=== PATIENT | male | born 1930 | race Caucasian/White ===

== ENCOUNTER 2018-04-12 09:17 | Emergency (ER) | payer MEDICARE, OTHER ==
[~2018-04-12] VITALS: Ht 175.3 cm; Wt 97.7 kg
[~2018-04-12 09:17] MED LIST: FLO0.4C PO; LEVO25TA50 PO
[2018-04-12] MEDS ORDERED: AMOX500C2 PO (10:19)
[2018-04-12 10:41] VITALS: BP 150/86
== END 2018-04-12 10:44 | disposition home or self-care (01) ==
LOC: ER 09:18
DX: J40 Bronchitis, not specified as acute or chronic (principal); E03.9 Hypothyroidism, unspecified; Z88.6 Allergy status to analgesic agent; Z88.5 Allergy status to narcotic agent; Z88.0 Allergy status to penicillin; Z79.899 Other long term (current) drug therapy
CPT/HCPCS: 71046; 93005; 99284

== ENCOUNTER 2018-05-22 07:56 | Emergency (ER) | payer MEDICARE, OTHER ==
[~2018-05-22] VITALS: Ht 175.3 cm; Wt 101.5 kg
[2018-05-22] MEDS ORDERED: normal saline 1000ML IV soln IVB ONE (08:40)
[2018-05-22] MEDS ORDERED: meclizine 12.5mg tablet PO ONE (08:55)
[2018-05-22 09:09] LABS: BASOPHILS # (AUTO) 0.1 X10'3 (0-0.2); BASOPHILS % (AUTO) 0.6 % (0-1); EOSINOPHILS # (AUTO) 0.2 X10'3 (0-0.9); EOSINOPHILS % (AUTO) 1.8 % (0-6); HEMATOCRIT 43.1 % (42.0-52.0); HEMOGLOBIN 14.2 g/dl (14.0-17.9); LYMPHOCYTES % (AUTO) 22.5 % (21-51); MEAN CORPUSCULAR HEMOGLOBIN 30.4 PG (27.0-31.0); MEAN CORPUSCULAR HGB CONC 32.8 % (33.0-36.5); MEAN CORPUSCULAR VOLUME 92.6 FL (78-98); MEAN PLATELET VOLUME 7.6 FL (7.4-10.4); MONOCYTES # (AUTO) 0.7 X10'3 (0-0.9); MONOCYTES % (AUTO) 7.5 % (2-12); NEUTROPHILS # (AUTO) 5.9 X10'3 (1.8-7.7); NEUTROPHILS % (AUTO) 67.6 % (42-75); PLATELET COUNT 226 X10'3 (140-440); RED BLOOD COUNT 4.65 X10'6 (4.70-6.10); RED CELL DISTRIBUTION WIDTH 15.5 % (11.5-14.5); WHITE BLOOD COUNT 8.8 X10'3 (4.5-11.0)
[2018-05-22 09:31] LABS: ALANINE AMINOTRANSFERASE 32 U/L (12-78); ALBUMIN 3.2 G/DL (3.4-5.0); ALKALINE PHOSPHATASE 60 IU/L (46-116); ANION GAP 7 (8-16); ASPARTATE AMINO TRANSFERASE 17 U/L (10-37); BILIRUBIN,TOTAL 0.5 MG/DL (0.1-1.0); BLOOD UREA NITROGEN 26 MG/DL (7-18); BUN/CREATININE RATIO 16.5 (5.4-32.0); CALCIUM 8.3 MG/DL (8.5-10.1); CHLORIDE 104 MMOL/L (99-107); CREATININE 1.58 MG/DL (0.60-1.10); GLUCOSE 112 MG/DL (70-104); POTASSIUM 3.7 MMOL/L (3.5-5.1); SODIUM 140 MMOL/L (135-145); TOTAL CARBON DIOXIDE 28.7 MMOL/L (24-32); TOTAL PROTEIN 6.3 G/DL (6.4-8.2); eGFR 42 ML/MIN
[2018-05-22 09:32] LABS: PHOSPHORUS 2.4 MG/DL (2.3-4.5)
[2018-05-22 10:17] LABS: CLARITY,URINE CLEAR (Clear); COLOR,URINE YELLOW (Yellow); GLUCOSE, URINE NEGATIVE (Neg); KETONES,URINE NEGATIVE (Neg); LEUKOCYTE ESTERASE ,URINE NEGATIVE (Neg); NITRITES, URINE NEGATIVE (Neg); OCCULT BLOOD,URINE NEGATIVE (Neg); PROTEIN,URINE NEGATIVE (Neg); UA COLLECTION TYPE URINAL; UROBILINOGEN,URINE 0.2 E.U/dL (0.2-1.0)
[2018-05-22] MEDS ORDERED: CARB15DR91 EACH EAR (10:55)
[2018-05-22 11:07] VITALS: BP 161/83
== END 2018-05-22 11:05 | disposition home or self-care (01) ==
LOC: ER 07:56
DX: R42 Dizziness and giddiness (principal); E03.9 Hypothyroidism, unspecified; Z98.890 Other specified postprocedural states; Z88.5 Allergy status to narcotic agent; Z88.0 Allergy status to penicillin; Z88.6 Allergy status to analgesic agent; Z79.899 Other long term (current) drug therapy
CPT/HCPCS: 36415; 71045; 80053; 81003; 83735; 84100; 84443; 84484; 85025; 93005; 96360; 99285; J7030; J8597

== ENCOUNTER 2018-06-03 07:02 | Emergency (ER) | payer MEDICARE, OTHER ==
[~2018-06-03] VITALS: Ht 175.3 cm; Wt 101.0 kg
[~2018-06-03 07:02] MED LIST changes: +CARB15DR91 EACH EAR
[2018-06-03 07:11] VITALS: BP 151/82
[2018-06-03] MEDS ORDERED: BENZ-16 PO (08:03)
== END 2018-06-03 08:30 | disposition home or self-care (01) ==
LOC: ER 07:03
DX: J06.9 Acute upper respiratory infection, unspecified (principal); E03.9 Hypothyroidism, unspecified; Z98.890 Other specified postprocedural states; Z88.5 Allergy status to narcotic agent; Z88.0 Allergy status to penicillin; Z88.6 Allergy status to analgesic agent; Z79.899 Other long term (current) drug therapy
CPT/HCPCS: 99283

== ENCOUNTER 2019-05-21 16:21 | Observation (INO) | payer MEDICARE, OTHER ==
[2019-05-21] VITALS (9 sets, daily range): BP systolic 78–128; BP diastolic 33–89
[~2019-05-21] VITALS: Ht 179.1 cm; Wt 98.0 kg
[2019-05-21] MEDS ORDERED: morphine 4 MG/ML inj SYRINge IV ONE (17:10)
[2019-05-21 17:22] LABS: BASOPHILS # (AUTO) 0.2 X10'3 (0-0.2); BASOPHILS % (AUTO) 0.8 % (0-1); EOSINOPHILS # (AUTO) 0.4 X10'3 (0-0.9); EOSINOPHILS % (AUTO) 1.9 % (0-6); HEMATOCRIT 44.2 % (42.0-52.0); LYMPHOCYTES # (AUTO) 1.7 X10'3 (1.1-4.8); LYMPHOCYTES % (AUTO) 8.7 % (21-51); MEAN CORPUSCULAR HEMOGLOBIN 30.3 PG (27.0-31.0); MEAN CORPUSCULAR HGB CONC 34.1 g/dL (33.0-36.5); MEAN CORPUSCULAR VOLUME 89.1 FL (78-98); MONOCYTES # (AUTO) 1.1 X10'3 (0-0.9); MONOCYTES % (AUTO) 5.9 % (2-12); NEUTROPHILS # (AUTO) 15.7 X10'3 (1.8-7.7); NEUTROPHILS % (AUTO) 82.7 % (42-75); PLATELET COUNT 310 X10'3 (140-440); RED BLOOD COUNT 4.96 X10'6 (4.70-6.10); RED CELL DISTRIBUTION WIDTH 13.1 % (11.5-14.5)
[2019-05-21 17:33] LABS: ALANINE AMINOTRANSFERASE 20 U/L (12-78); ALBUMIN 3.7 G/DL (3.4-5.0); ALBUMIN/GLOBULIN RATIO 0.8 (1.1-1.5); ALKALINE PHOSPHATASE 85 IU/L (46-116); AMYLASE 57 U/L (25-115); ANION GAP 8 (8-16); ASPARTATE AMINO TRANSFERASE 26 U/L (10-37); BILIRUBIN,TOTAL 0.6 MG/DL (0.1-1.0); BLOOD UREA NITROGEN 19 MG/DL (7-18); CALCIUM 9.4 MG/DL (8.5-10.1); CHLORIDE 103 MMOL/L (99-107); CREATININE 1.46 MG/DL (0.60-1.10); GLUCOSE 124 MG/DL (70-104); LIPASE 99 U/L (73-393); POTASSIUM 4.2 MMOL/L (3.5-5.1); SODIUM 139 MMOL/L (135-145); TOTAL PROTEIN 8.1 G/DL (6.4-8.2); eGFR 45 ML/MIN
[2019-05-21] MEDS ORDERED: ondansetron/PF 4mg/2ml inj IV ONE (17:35)
[2019-05-21 19:03] LABS: CLARITY,URINE CLEAR (Clear); COLOR,URINE YELLOW (Yellow); GLUCOSE, URINE NEGATIVE (Neg); KETONES,URINE NEGATIVE (Neg); LEUKOCYTE ESTERASE ,URINE NEGATIVE (Neg); NITRITES, URINE NEGATIVE (Neg); OCCULT BLOOD,URINE NEGATIVE (Neg); PROTEIN,URINE NEGATIVE (Neg); UROBILINOGEN,URINE 0.2 E.U/dL (0.2-1.0)
[2019-05-21 19:05] LABS: UA COLLECTION TYPE VOIDED
[2019-05-21] MEDS ORDERED: NORMAL SALINE IV ONE (19:30)
[2019-05-21] MEDS ORDERED: CEFOXITIN IV ONE (19:30)
[2019-05-21] MEDS ORDERED: D5W 2 GM IV ONE (19:30)
[2019-05-21] MEDS ORDERED: cefoxitin sod inj 2,000 MG in normal saline 100ml IV soln 100 ML IV SCH (19:40)
--- NOTE | 2019-05-21 20:05 | NUR ---
REECEIVED A CALL FROM DIESEL BUS MECHANICCOLLEEN Castro TO MAKE SURE PT HAS ALL HIS CLOTHING OFF AND A PATENT IV LiNE. PT IN GOWN , REMOVED PANTS , BELT , SHOES, SOCKS, AND ADDED THE FLANNEL AND JACKET TO PT BELONGING BAG. [facility] AND CAR KEYS , AND HIS FALSE TOOTH . PT HAS GLASSESS ON AND ASKED TO KEEP THEM IN PLACE TILL HE IS IN THE OR .
--- NOTE | 2019-05-21 20:06 | NUR ---
COLLEEN kamara in or stated to send the abxcefoitin ordered with the pt to the or and it will be adminstered there. med at bed awaiting canvas workerturner machine report given to QA ENGINEERCOLLEEN Kamara
[2019-05-21] MEDS ORDERED: BUPIVAcaine/PF 2.5 mg/ml (0.25%) 30ml vial ONE (20:07)
[2019-05-21] MEDS ORDERED: desflurane 240ml liquid inh. IH ONE (20:37)
[2019-05-21] MEDS ORDERED: ringers solution, lacted 1,000 ML IV SCH ×2 (20:38→22:05)
[2019-05-21] MEDS ORDERED: morphine 4 MG/ML inj SYRINge IV PRN ×4 (20:40→22:05)
[2019-05-21] MEDS ORDERED: ondansetron/PF 4mg/2ml inj IV PRN ×4 (20:40→22:05)
[2019-05-21] MEDS ORDERED: meperidine/PF 25mg/ml syringe IV PRN ×5 (20:40→22:05)
[2019-05-21] MEDS ORDERED: proCHLORperazine 10 MG/2 ml inj IV PRN ×2 (20:40→22:05)
[2019-05-21] MEDS ORDERED: midazolam 2 mg/2 ml injection ONE (20:41)
[2019-05-21] MEDS ORDERED: fentaNYL/PF 50MCG/1 ML 2ML syringe ONE (20:41)
[2019-05-21] MEDS ORDERED: LIDOcaine 2% (20mg/ml) 5ml vial ONE (20:42)
[2019-05-21] MEDS ORDERED: propofol inj 20 ML IV ONE (20:42)
[2019-05-21] MEDS ORDERED: rocuronium 10mg/ml inj IV ONE (20:42)
[2019-05-21] MEDS ORDERED: mag hydrox/Alum hydrox/simeth 30ml oral suspension PO PRN (21:10)
[2019-05-21] MEDS ORDERED: magnesium hydroxide 30ml (MOM) UD suspension PO PRN (21:10)
[2019-05-21] MEDS ORDERED: acetaminophen 325mg tablet PO PRN ×2 (21:10)
[2019-05-21] MEDS ORDERED: acetaminophen 1,000mg/100ml IV 100 ML IV ONE (21:20)
[2019-05-21] MEDS ORDERED: glycopyrrolate 0.2mg/ml inj ONE (21:27)
[2019-05-21] MEDS ORDERED: neostigmine methylsulfate 1 MG/ML 10ml vial ONE (21:27)
--- NOTE | 2019-05-21 21:38 | NUR ---
Received from OR via [facility] , accompanied by Anesthesiologist EDY and report given by Anesthesiolgist. PATIENT WITH 20G PIV IN RIGHT UE RUNNING LR AT 100. PATIENT WITH 10L MASK ON WITH 100%, MENDOZA CATHETER PRESENT AND SMALL AMOUNT OF BLOOD AT THE MEATUS. PATIENT WITH SCDS DONNED. 2 HEARING AIDES PRESENT IN EARS. 10L MASK ON WITH 100% SATURATIONS. 3 ABDOMINAL LAP SITES THAT ARE CDI. MEDICATED FOR PAIN UPON ARRIVAL. Addendum: 05/21/19 at 2152 by Hussein Mclean RN, RN Amended: Links added.
[2019-05-21] MEDS ORDERED: HYDROmorphone 1 mg/ml syringe IV PRN (22:00)
--- NOTE | 2019-05-21 22:18 | NUR ---
ALL CRITERIA FOR TRANSFER TO THE FLOOR HAS BEEN ACHIEVED. VSS. BED LOW, CALL LIGHT AND VS. SET IN PLACE. RN PRESENT TO ACCEPT CARE. PATIENT RESTING COMFORTABLY IN BED. BELONGINGS SENT WITH PATIENT. DRESSINGS CDI. COLLEEN CLEMONS PRESENT TO ACCEPT CARE OF PATIENT. Addendum: 05/21/19 at 2227 by Hussein Sun - COLLEEN MACIAS Amended: Links added.
--- NOTE | 2019-05-21 22:25 | NUR ---
Received report from COLLEEN Savage. Awaiting patient arrival to the unit.
--- NOTE | 2019-05-21 22:28 | NUR ---
Patient arrived to the floor on hospital bed accompanied by COLLEEN Savage. Patient is slightly sleepy from anesthesia. 16 even and unlabored respirations on 2L NC. In no apparent distress. Call light and items of frequent use within reach. Will continue to monitor.
[2019-05-21] MEDS ORDERED: cefoxitin sod inj 2,000 MG in normal saline 100ml IV soln 100 ML IV ONE (23:45)
[2019-05-22] VITALS: BP 97/47
[2019-05-22 01:15] VITALS: BP 100/45
[2019-05-22 02:15] VITALS: BP 94/54
[2019-05-22 03:15] VITALS: BP 98/53
[2019-05-22 05:46] LABS: BASOPHILS % (AUTO) 0 % (0-1); EOSINOPHILS % (AUTO) 0 % (0-6); HEMATOCRIT 40.5 % (42.0-52.0); HEMOGLOBIN 13.7 g/dl (14.0-17.9); LYMPHOCYTES # (AUTO) 0.6 X10'3 (1.1-4.8); LYMPHOCYTES % (AUTO) 2.7 % (21-51); MEAN CORPUSCULAR HEMOGLOBIN 30.1 PG (27.0-31.0); MEAN CORPUSCULAR HGB CONC 33.9 g/dL (33.0-36.5); MEAN CORPUSCULAR VOLUME 88.8 FL (78-98); MEAN PLATELET VOLUME 8.3 FL (7.4-10.4); MONOCYTES # (AUTO) 0.5 X10'3 (0-0.9); MONOCYTES % (AUTO) 2.5 % (2-12); NEUTROPHILS # (AUTO) 20.8 X10'3 (1.8-7.7); NEUTROPHILS % (AUTO) 94.8 % (42-75); PLATELET COUNT 259 X10'3 (140-440); RED BLOOD COUNT 4.56 X10'6 (4.70-6.10); RED CELL DISTRIBUTION WIDTH 12.9 % (11.5-14.5); WHITE BLOOD COUNT 21.9 X10'3 (4.5-11.0)
[2019-05-22 05:49] LABS: ALBUMIN 2.9 G/DL (3.4-5.0); ANION GAP 9 (8-16); BLOOD UREA NITROGEN 21 MG/DL (7-18); CALCIUM 8.6 MG/DL (8.5-10.1); CHLORIDE 104 MMOL/L (99-107); CREATININE 1.62 MG/DL (0.60-1.10); GLUCOSE 157 MG/DL (70-104); POTASSIUM 4.5 MMOL/L (3.5-5.1); SODIUM 138 MMOL/L (135-145); TOTAL CARBON DIOXIDE 24.9 MMOL/L (24-32); eGFR 40 ML/MIN
--- NOTE | 2019-05-22 06:33 | NUR ---
Problems reprioritized. Patient report given, questions answered & plan of care reviewed with COLLEEN Maxwell.
--- NOTE | 2019-05-22 06:41 | NUR ---
Patient in room [facility]. I have received report from Clotilde MACIAS and had the opportunity to ask questions and assume patient care.
[2019-05-22 07:00] VITALS: BP 108/52
[2019-05-22] MEDS ORDERED: tamsulosin 0.4mg capsule PO SCH (08:00)
--- NOTE | 2019-05-22 09:09 | NUR ---
Dr. Correa made rounds talked to patient and at bedside. Received order to d/c partida catheter and if able to urinate may go home today. Dr. Wang also aware about Dr. Correa discharging this patient today Addendum: 05/22/19 at 1025 by Alissa Higginbotham RN Dr. Correa and Dr. Wang were both notified about elevated WBC today (21.9)
--- NOTE | 2019-05-22 09:15 | NUR ---
D/c'd partida catheter as ordered, tolerated well. Encouraged patient to try to void. Urinal provided, instructed patient to use the urinal when he pee. Encouraged patient to ambulate with the [employer] soon. LYNETTE Nicole instructed to ambulate patient in the hallway
[2019-05-22] MEDS ORDERED: HYDR-4383 PO (10:25)
[2019-05-22 11:00] VITALS: BP 98/52
--- NOTE | 2019-05-22 14:17 | NUR ---
Patient urinated at earlier time, 50 ml of yellow urine. Bladder scan shows 130ml. Encouraged patient to drink more and ambulate. Patient ambulated in the hallway [address] Wang came by and I let him know about this, he instructed me to let patient go and to give instruction to patient to go to ER for partida catheter insertion if patient unable to urinate and have a lot of discomfort from not urinating. Charge nurse Mara aware about this Addendum: 05/22/19 at 1451 by Alissa Higginbotham RN Patient reported to me that he already passed gas
--- NOTE | 2019-05-22 14:39 | NUR ---
Discharge instruction given to patient and the at bedside. Patient was instructed to go to ER for partida catheter insertion if patient unable to urinate for several hours and have a lot of discomfort from not urinating. Patient verbalized understanding of all instructions made. Peripheral IV catheter removed, tip intact. Original written prescription for [place] given to patient. Instructed patient to ensure he has all his belongings with him before leaving.
--- NOTE | 2019-05-22 14:58 | NUR ---
Patient urinated 120 ml of blood-tinged urine. Instructed patient not to worry about unless it's persistent and urine color become dark red or groves red color. Instructed patient that if hematuria persists and dark or groves red then he can go to ER to be evaluated.
== END 2019-05-22 14:55 | disposition home or self-care (01) ==
LOC: ER 16:21 → SUR 3N 22:08
PROVIDERS: ADMIT Hospitalist; ATTEND Internal Medicine
DX: K35.80 Unspecified acute appendicitis (principal); E03.9 Hypothyroidism, unspecified; N18.3 Chronic kidney disease, stage 3 (moderate); N40.1 Benign prostatic hyperplasia with lower urinary tract symptoms; R33.8 Other retention of urine; Z79.899 Other long term (current) drug therapy; Z88.0 Allergy status to penicillin; Z88.5 Allergy status to narcotic agent; Z88.6 Allergy status to analgesic agent
CPT/HCPCS: 36415; 44970; 74176; 80048; 80053; 81003; 82150; 83605; 83690; 84145; 85025; 85610; 87040; 87081; 93005; 96365; 96375; 99284; G0378; J0131; J0694; J2001; J2175; J2250; J2270; J2405; J2704; J2710; J3010; J3490; J7030; J7120; A4215; A4314; A4618; A7000

== ENCOUNTER 2019-05-30 13:06 | Emergency (ER) | payer MEDICARE, OTHER ==
[~2019-05-30] VITALS: Ht 177.8 cm; Wt 92.0 kg
[~2019-05-30 13:06] MED LIST changes: -CARB15DR91 EACH EAR; +HYDR-4383 PO
--- NOTE | 2019-05-30 13:27 | NUR ---
stool sample collected while in lobby bathroom and sent to lab.
[2019-05-30 14:34] VITALS: BP 133/91
== END 2019-05-30 15:38 | disposition left against medical advice (07) ==
LOC: ER 13:07
DX: R19.7 Diarrhea, unspecified (principal); Z53.29 Procedure and treatment not carried out because of patient's decision for other reasons

== ENCOUNTER 2019-06-01 09:35 | Emergency (ER) | payer MEDICARE, OTHER ==
[~2019-06-01] VITALS: Ht 180.3 cm; Wt 92.0 kg
[2019-06-01 10:48] LABS: BASOPHILS # (AUTO) 0.1 X10'3 (0-0.2); BASOPHILS % (AUTO) 1.1 % (0-1); EOSINOPHILS # (AUTO) 0.3 X10'3 (0-0.9); EOSINOPHILS % (AUTO) 2.3 % (0-6); HEMATOCRIT 41.5 % (42.0-52.0); LYMPHOCYTES # (AUTO) 1.8 X10'3 (1.1-4.8); LYMPHOCYTES % (AUTO) 12.7 % (21-51); MEAN CORPUSCULAR HEMOGLOBIN 29.5 PG (27.0-31.0); MEAN CORPUSCULAR HGB CONC 33.8 g/dL (33.0-36.5); MEAN CORPUSCULAR VOLUME 87.2 FL (78-98); MEAN PLATELET VOLUME 7.5 FL (7.4-10.4); MONOCYTES # (AUTO) 1.1 X10'3 (0-0.9); NEUTROPHILS # (AUTO) 10.5 X10'3 (1.8-7.7); NEUTROPHILS % (AUTO) 75.9 % (42-75); PLATELET COUNT 318 X10'3 (140-440); RED BLOOD COUNT 4.76 X10'6 (4.70-6.10); RED CELL DISTRIBUTION WIDTH 12.8 % (11.5-14.5); WHITE BLOOD COUNT 13.9 X10'3 (4.5-11.0)
[2019-06-01 11:02] LABS: ALANINE AMINOTRANSFERASE 16 U/L (12-78); ALBUMIN/GLOBULIN RATIO 0.8 (1.1-1.5); ALKALINE PHOSPHATASE 64 IU/L (46-116); ANION GAP 10 (8-16); ASPARTATE AMINO TRANSFERASE 13 U/L (10-37); BILIRUBIN,TOTAL 0.5 MG/DL (0.1-1.0); BLOOD UREA NITROGEN 23 MG/DL (7-18); CALCIUM 8.6 MG/DL (8.5-10.1); CHLORIDE 106 MMOL/L (99-107); CREATININE 1.35 MG/DL (0.60-1.10); GLUCOSE 91 MG/DL (70-104); POTASSIUM 3.5 MMOL/L (3.5-5.1); SODIUM 139 MMOL/L (135-145); TOTAL CARBON DIOXIDE 23.1 MMOL/L (24-32); TOTAL PROTEIN 6.9 G/DL (6.4-8.2); eGFR 50 ML/MIN
[2019-06-01 11:27] VITALS: BP 121/77
[2019-06-01 12:22] LABS: C DIFF ANTIGEN POSITIVE (NEGATIVE); C DIFF SPECIMEN=DIARRHEA? ACCEPTABLE; C DIFFICILE TOXINS A&B POSITIVE (Neg)
[2019-06-01] MEDS ORDERED: vancomycin 125mg/5ml ORAL solution 5ml UD bottle PO ONE (12:30)
[2019-06-01] MEDS ORDERED: VANC50SO3 PO (12:32)
== END 2019-06-01 13:18 | disposition home or self-care (01) ==
LOC: ER 09:36
DX: A04.72 Enterocolitis due to Clostridium difficile, not specified as recurrent (principal); E03.9 Hypothyroidism, unspecified; Z88.0 Allergy status to penicillin; Z88.6 Allergy status to analgesic agent; Z79.899 Other long term (current) drug therapy; Z90.49 Acquired absence of other specified parts of digestive tract; Z98.890 Other specified postprocedural states
CPT/HCPCS: 36415; 80053; 85025; 87324; 87449; 99283

== ENCOUNTER 2019-06-04 08:02 | Emergency (ER) | payer MEDICARE, OTHER ==
[~2019-06-04] VITALS: Ht 177.8 cm; Wt 93.0 kg
[~2019-06-04 08:02] MED LIST changes: +VANC50SO3 PO
[2019-06-04 09:16] LABS: CLARITY,URINE CLEAR (Clear); COLOR,URINE YELLOW (Yellow); GLUCOSE, URINE NEGATIVE (Neg); KETONES,URINE NEGATIVE (Neg); LEUKOCYTE ESTERASE ,URINE TRACE (Neg); NITRITES, URINE NEGATIVE (Neg); OCCULT BLOOD,URINE NEGATIVE (Neg); PROTEIN,URINE NEGATIVE (Neg); UROBILINOGEN,URINE 0.2 E.U/dL (0.2-1.0)
[2019-06-04 09:24] LABS: UA COLLECTION TYPE URINAL
[2019-06-04 09:26] LABS: BACTERIA,URINE FEW /HPF (Neg); MUCUS STRANDS NONE SEEN /LPF (Neg); RBC,URINE NONE SEEN /HPF (0-2); SQUAMOUS EPITHELIAL CELL,UR NONE SEEN /LPF (FEW)
[2019-06-04 09:33] LABS: BASOPHILS # (AUTO) 0.1 X10'3 (0-0.2); BASOPHILS % (AUTO) 0.7 % (0-1); EOSINOPHILS # (AUTO) 0.3 X10'3 (0-0.9); EOSINOPHILS % (AUTO) 2.4 % (0-6); HEMATOCRIT 40.7 % (42.0-52.0); HEMOGLOBIN 13.7 g/dl (14.0-17.9); LYMPHOCYTES # (AUTO) 1.5 X10'3 (1.1-4.8); MEAN CORPUSCULAR HEMOGLOBIN 29.3 PG (27.0-31.0); MEAN CORPUSCULAR HGB CONC 33.7 g/dL (33.0-36.5); MEAN CORPUSCULAR VOLUME 87.2 FL (78-98); MEAN PLATELET VOLUME 7.8 FL (7.4-10.4); MONOCYTES % (AUTO) 7.8 % (2-12); NEUTROPHILS # (AUTO) 10.3 X10'3 (1.8-7.7); NEUTROPHILS % (AUTO) 78.1 % (42-75); PLATELET COUNT 305 X10'3 (140-440); RED BLOOD COUNT 4.67 X10'6 (4.70-6.10); RED CELL DISTRIBUTION WIDTH 12.8 % (11.5-14.5); WHITE BLOOD COUNT 13.2 X10'3 (4.5-11.0)
[2019-06-04 09:47] LABS: ALANINE AMINOTRANSFERASE 17 U/L (12-78); ALBUMIN/GLOBULIN RATIO 0.8 (1.1-1.5); ALKALINE PHOSPHATASE 64 IU/L (46-116); ANION GAP 5 (8-16); ASPARTATE AMINO TRANSFERASE 16 U/L (10-37); BILIRUBIN,TOTAL 0.5 MG/DL (0.1-1.0); BLOOD UREA NITROGEN 17 MG/DL (7-18); BUN/CREATININE RATIO 13.1 (5.4-32.0); CALCIUM 8.4 MG/DL (8.5-10.1); CHLORIDE 107 MMOL/L (99-107); GLUCOSE 99 MG/DL (70-104); POTASSIUM 3.6 MMOL/L (3.5-5.1); SODIUM 139 MMOL/L (135-145); TOTAL CARBON DIOXIDE 26.6 MMOL/L (24-32); eGFR 52 ML/MIN
[2019-06-04 10:29] VITALS: BP 143/77
== END 2019-06-04 10:30 | disposition home or self-care (01) ==
LOC: ER 08:03
DX: R33.9 Retention of urine, unspecified (principal); N40.0 Benign prostatic hyperplasia without lower urinary tract symptoms; E03.9 Hypothyroidism, unspecified; Z90.49 Acquired absence of other specified parts of digestive tract; Z98.890 Other specified postprocedural states; Z88.5 Allergy status to narcotic agent; Z88.0 Allergy status to penicillin; Z79.899 Other long term (current) drug therapy
CPT/HCPCS: 36415; 80053; 81001; 85025; 87077; 87088; 87186; 99284

== ENCOUNTER 2019-06-18 04:57 | Inpatient (IN) | payer MEDICARE, OTHER ==
[~2019-06-18] VITALS: Ht 180.3 cm; Wt 93.2 kg
[2019-06-18] MEDS ORDERED: normal saline 1000ml 1,000 ML IV ONE (05:30)
[2019-06-18 05:56] LABS: BASOPHILS % (AUTO) 0.1 % (0-1); EOSINOPHILS # (AUTO) 0.2 X10'3 (0-0.9); EOSINOPHILS % (AUTO) 1.4 % (0-6); HEMATOCRIT 39.5 % (42.0-52.0); HEMOGLOBIN 13.4 g/dl (14.0-17.9); LYMPHOCYTES % (AUTO) 5.7 % (21-51); MEAN CORPUSCULAR HEMOGLOBIN 29.5 PG (27.0-31.0); MEAN CORPUSCULAR HGB CONC 33.8 g/dL (33.0-36.5); MEAN CORPUSCULAR VOLUME 87.5 FL (78-98); MEAN PLATELET VOLUME 7.5 FL (7.4-10.4); MONOCYTES # (AUTO) 1.1 X10'3 (0-0.9); MONOCYTES % (AUTO) 6.6 % (2-12); NEUTROPHILS # (AUTO) 14.6 X10'3 (1.8-7.7); NEUTROPHILS % (AUTO) 86.2 % (42-75); PLATELET COUNT 300 X10'3 (140-440); RED BLOOD COUNT 4.52 X10'6 (4.70-6.10); RED CELL DISTRIBUTION WIDTH 13.2 % (11.5-14.5); WHITE BLOOD COUNT 16.9 X10'3 (4.5-11.0)
[2019-06-18 06:07] LABS: ALANINE AMINOTRANSFERASE 12 U/L (12-78); ALBUMIN/GLOBULIN RATIO 0.8 (1.1-1.5); ALKALINE PHOSPHATASE 76 IU/L (46-116); ANION GAP 10 (8-16); ASPARTATE AMINO TRANSFERASE 16 U/L (10-37); BILIRUBIN,TOTAL 0.5 MG/DL (0.1-1.0); BLOOD UREA NITROGEN 19 MG/DL (7-18); BUN/CREATININE RATIO 13.8 (5.4-32.0); CALCIUM 8.6 MG/DL (8.5-10.1); CHLORIDE 103 MMOL/L (99-107); CREATININE 1.38 MG/DL (0.60-1.10); GLUCOSE 117 MG/DL (70-104); POTASSIUM 3.8 MMOL/L (3.5-5.1); SODIUM 139 MMOL/L (135-145); TOTAL CARBON DIOXIDE 26.4 MMOL/L (24-32); TOTAL PROTEIN 6.7 G/DL (6.4-8.2); eGFR 49 ML/MIN
[2019-06-18] MEDS ORDERED: acetaminophen 325mg tablet PO ONE ×2 (06:50→11:45)
--- NOTE | 2019-06-18 06:57 | NUR ---
DR MAGAÑA NOTIFIED OF INCREASING TEMP AND SHIVERS. VERBAL ORDER FOR TYLENOL. ORDERS FOR LA AND BC PLACED. MD WILL BE IN TO SEE
[2019-06-18 08:11] LABS: CLARITY,URINE CLEAR (Clear); COLOR,URINE YELLOW (Yellow); GLUCOSE, URINE NEGATIVE (Neg); KETONES,URINE NEGATIVE (Neg); LEUKOCYTE ESTERASE ,URINE NEGATIVE (Neg); NITRITES, URINE NEGATIVE (Neg); OCCULT BLOOD,URINE NEGATIVE (Neg); PROTEIN,URINE NEGATIVE (Neg); UROBILINOGEN,URINE 0.2 E.U/dL (0.2-1.0)
[2019-06-18 08:12] LABS: UA COLLECTION TYPE VOIDED
[2019-06-18] MEDS ORDERED: potassium CL 10mEq/100ml bag 100 ML IV PRN ×2 (08:25)
[2019-06-18] MEDS ORDERED: magnesium 4gm in 100ml NS 100 ML IV PRN (08:25)
[2019-06-18] MEDS ORDERED: magnesium 2GM in 50ml NS 50 ML IV PRN (08:25)
[2019-06-18] MEDS ORDERED: ondansetron/PF 4mg/2ml inj IV PRN (08:25)
[2019-06-18] MEDS ORDERED: mag hydrox/Alum hydrox/simeth 30ml oral suspension PO PRN (08:25)
[2019-06-18] MEDS ORDERED: potassium Cl 20 mEq SR tablet PO PRN (08:25)
[2019-06-18] MEDS ORDERED: acetaminophen 325mg tablet PO PRN ×2 (08:25)
[2019-06-18] MEDS ORDERED: magnesium Cl slow-release 64mg tablet PO PRN (08:25)
--- NOTE | 2019-06-18 08:44 | NUR ---
Received report from COLLEEN Hagen. awaiting patient arrival.
[2019-06-18] MEDS: vancomycin 250MG/10ML UD oral solution 10ML BOTTLE PO SCH ×3 (09:01→20:24)
[2019-06-18 09:10] VITALS: BP 146/74
[2019-06-18 09:26] LABS: C DIFF ANTIGEN POSITIVE (NEGATIVE); C DIFF SPECIMEN=DIARRHEA? ACCEPTABLE; C DIFFICILE TOXINS A&B POSITIVE (Neg)
[2019-06-18] MEDS: normal saline 1000ml 1,000 ML IV SCH ×2 (09:49→20:53)
[2019-06-18] MEDS: levoTHYROXINE 25mcg tablet PO SCH (10:30)
[2019-06-18 10:58] VITALS: BP 132/61
--- NOTE | 2019-06-18 10:59 | NUR ---
Patient already received tylenol in ER. not due for another dose yet. Cool wash cloth given and layers of warm blankets were removed. Addendum: 06/18/19 at 1100 by Grace Taveras RN Amended: Links added.
--- NOTE | 2019-06-18 11:43 | NUR ---
PAGER ID: [phone] MESSAGE: Denise Lord : patient has a temp of 101.2 .. last dose of Tylenol was at 0700 .. would you like a one time order? [phone]
[2019-06-18 18:00] VITALS: BP 134/67
--- NOTE | 2019-06-18 18:18 | NUR ---
Problems reprioritized. Patient report given, questions answered & plan of care reviewed with COLLEEN Damian.
--- NOTE | 2019-06-18 18:30 | NUR ---
Patient in room [facility]. I have received report from Cynthia MACIAS and had the opportunity to ask questions and assume patient care.
[2019-06-19] VITALS: BP 130/66
[2019-06-19] MEDS: vancomycin 250MG/10ML UD oral solution 10ML BOTTLE PO SCH ×4 (02:24→20:27)
[2019-06-19 05:58] LABS: BASOPHILS # (AUTO) 0.1 X10'3 (0-0.2); BASOPHILS % (AUTO) 0.5 % (0-1); EOSINOPHILS # (AUTO) 0.2 X10'3 (0-0.9); EOSINOPHILS % (AUTO) 1.6 % (0-6); HEMATOCRIT 36.2 % (42.0-52.0); HEMOGLOBIN 12.4 g/dl (14.0-17.9); LYMPHOCYTES # (AUTO) 1.6 X10'3 (1.1-4.8); LYMPHOCYTES % (AUTO) 10.4 % (21-51); MEAN CORPUSCULAR HEMOGLOBIN 29.8 PG (27.0-31.0); MEAN CORPUSCULAR HGB CONC 34.2 g/dL (33.0-36.5); MEAN CORPUSCULAR VOLUME 87.2 FL (78-98); MEAN PLATELET VOLUME 8.1 FL (7.4-10.4); MONOCYTES # (AUTO) 1.5 X10'3 (0-0.9); MONOCYTES % (AUTO) 9.6 % (2-12); NEUTROPHILS # (AUTO) 12.3 X10'3 (1.8-7.7); NEUTROPHILS % (AUTO) 77.9 % (42-75); PLATELET COUNT 247 X10'3 (140-440); RED BLOOD COUNT 4.16 X10'6 (4.70-6.10); RED CELL DISTRIBUTION WIDTH 13.6 % (11.5-14.5); WHITE BLOOD COUNT 15.7 X10'3 (4.5-11.0)
[2019-06-19 06:11] LABS: ALANINE AMINOTRANSFERASE 12 U/L (12-78); ALBUMIN 2.4 G/DL (3.4-5.0); ALBUMIN/GLOBULIN RATIO 0.7 (1.1-1.5); ALKALINE PHOSPHATASE 58 IU/L (46-116); ANION GAP 8 (8-16); ASPARTATE AMINO TRANSFERASE 13 U/L (10-37); BILIRUBIN,TOTAL 0.6 MG/DL (0.1-1.0); BLOOD UREA NITROGEN 18 MG/DL (7-18); BUN/CREATININE RATIO 12.2 (5.4-32.0); CALCIUM 8.1 MG/DL (8.5-10.1); CHLORIDE 108 MMOL/L (99-107); CREATININE 1.48 MG/DL (0.60-1.10); GLUCOSE 100 MG/DL (70-104); MAGNESIUM 1.8 MG/DL (1.5-2.4); POTASSIUM 3.3 MMOL/L (3.5-5.1); SODIUM 140 MMOL/L (135-145); TOTAL CARBON DIOXIDE 24.3 MMOL/L (24-32); TOTAL PROTEIN 5.7 G/DL (6.4-8.2); eGFR 45 ML/MIN
--- NOTE | 2019-06-19 06:20 | NUR ---
Patient in room [facility]. I have received report from DESTIN MACIAS and had the opportunity to ask questions and assume patient care.
--- NOTE | 2019-06-19 06:30 | NUR ---
Problems reprioritized. Patient report given, questions answered & plan of care reviewed with Brian.
[2019-06-19 07:00] VITALS: BP 112/65
[2019-06-19] MEDS: K and/or MAG REPLACEMENT MC SCH (07:38)
[2019-06-19] MEDS: potassium Cl 20 mEq SR tablet PO PRN ×3 (07:41→20:27)
[2019-06-19] MEDS: tamsulosin 0.4mg capsule PO SCH (07:41)
[2019-06-19] MEDS: levoTHYROXINE 25mcg tablet PO SCH (07:41)
[2019-06-19] MEDS: enoxaparin 30mg/0.3ml syringe SQ SCH (07:42)
[2019-06-19 11:00] VITALS: BP 131/79
[2019-06-19] MEDS ORDERED: PHENYLEPH/MIN OIL/PETROLAT hemorrhoid oint 57GM tube RC PRN ×2 (15:15→21:38)
--- NOTE | 2019-06-19 17:40 | NUR ---
Problems reprioritized. Patient report given, questions answered & plan of care reviewed with DESTIN MACIAS.
[2019-06-19 18:30] VITALS: BP 141/71
--- NOTE | 2019-06-19 18:30 | NUR ---
Patient in room [facility]. I have received report from Anh MACIAS and had the opportunity to ask questions and assume patient care.
[2019-06-19] MEDS: lactobacillus rhamnosus 10,000 MMU CELLS/CAPSULE PO SCH (20:27)
[2019-06-20] VITALS: BP 155/80
[2019-06-20] MEDS: vancomycin 250MG/10ML UD oral solution 10ML BOTTLE PO SCH ×4 (02:19→19:57)
--- NOTE | 2019-06-20 06:30 | NUR ---
Problems reprioritized. Patient report given, questions answered & plan of care reviewed with Gerri danielle.
[2019-06-20 06:44] LABS: BASOPHILS % (AUTO) 0.4 % (0-1); EOSINOPHILS # (AUTO) 0.5 X10'3 (0-0.9); EOSINOPHILS % (AUTO) 4.8 % (0-6); HEMATOCRIT 38.6 % (42.0-52.0); HEMOGLOBIN 13.1 g/dl (14.0-17.9); LYMPHOCYTES # (AUTO) 1.8 X10'3 (1.1-4.8); MEAN CORPUSCULAR HEMOGLOBIN 29.7 PG (27.0-31.0); MEAN CORPUSCULAR VOLUME 87.3 FL (78-98); MONOCYTES # (AUTO) 1.1 X10'3 (0-0.9); MONOCYTES % (AUTO) 10.3 % (2-12); NEUTROPHILS # (AUTO) 6.9 X10'3 (1.8-7.7); NEUTROPHILS % (AUTO) 67.5 % (42-75); PLATELET COUNT 283 X10'3 (140-440); RED BLOOD COUNT 4.42 X10'6 (4.70-6.10); RED CELL DISTRIBUTION WIDTH 13.8 % (11.5-14.5); WHITE BLOOD COUNT 10.3 X10'3 (4.5-11.0)
[2019-06-20 07:00] VITALS: BP 140/84
--- NOTE | 2019-06-20 07:08 | NUR ---
Patient in room [facility]. I have received report from DESTIN MACIAS and had the opportunity to ask questions and assume patient care.
[2019-06-20 07:11] LABS: ALANINE AMINOTRANSFERASE 14 U/L (12-78); ALBUMIN 2.7 G/DL (3.4-5.0); ALBUMIN/GLOBULIN RATIO 0.7 (1.1-1.5); ALKALINE PHOSPHATASE 68 IU/L (46-116); ANION GAP 11 (8-16); ASPARTATE AMINO TRANSFERASE 17 U/L (10-37); BILIRUBIN,TOTAL 0.4 MG/DL (0.1-1.0); BLOOD UREA NITROGEN 22 MG/DL (7-18); BUN/CREATININE RATIO 15.9 (5.4-32.0); CALCIUM 8.5 MG/DL (8.5-10.1); CHLORIDE 107 MMOL/L (99-107); CREATININE 1.38 MG/DL (0.60-1.10); GLUCOSE 93 MG/DL (70-104); MAGNESIUM 2.1 MG/DL (1.5-2.4); POTASSIUM 3.9 MMOL/L (3.5-5.1); SODIUM 141 MMOL/L (135-145); TOTAL CARBON DIOXIDE 23.1 MMOL/L (24-32); TOTAL PROTEIN 6.4 G/DL (6.4-8.2); eGFR 49 ML/MIN
[2019-06-20] MEDS: tamsulosin 0.4mg capsule PO SCH (07:25)
[2019-06-20] MEDS: lactobacillus rhamnosus 10,000 MMU CELLS/CAPSULE PO SCH ×2 (07:25→19:57)
[2019-06-20] MEDS: levoTHYROXINE 25mcg tablet PO SCH (07:25)
[2019-06-20] MEDS: enoxaparin 30mg/0.3ml syringe SQ SCH (07:26)
[2019-06-20] MEDS: K and/or MAG REPLACEMENT MC SCH (08:00)
[2019-06-20] MEDS ORDERED: SYN0.112T PO (09:21)
--- NOTE | 2019-06-20 10:46 | NUR ---
PT HAD ANOTHER DOSE OF LEVOTHYROXINE ADDED TO EMAR AFTER I GAVE MORNING DOSE. CHECKED WITH PHARMACY ABOUT GIVING ANOTHER DOSE. SHE CONFIRMS ITS OK.
[2019-06-20 11:00] VITALS: BP 124/90
[2019-06-20] MEDS: levoTHYROXINE 112mcg tablet PO SCH (11:16)
--- NOTE | 2019-06-20 17:58 | NUR ---
Problems reprioritized. Patient report given, questions answered & plan of care reviewed with JESS MACIAS.
[2019-06-20 18:00] VITALS: BP 158/83
--- NOTE | 2019-06-20 19:39 | NUR ---
Patient in room [facility]. I have received report from Anh MACIAS and had the opportunity to ask questions and assume patient care. Addendum: 06/20/19 at 194 by Cynthia Damon RN Amended: Links added.
[2019-06-21] VITALS: BP 144/78
[2019-06-21] MEDS: vancomycin 250MG/10ML UD oral solution 10ML BOTTLE PO SCH ×4 (01:24→19:46)
--- NOTE | 2019-06-21 06:30 | NUR ---
Patient in room [facility]. I have received report from Cynthia MACIAS and had the opportunity to ask questions and assume patient care.
--- NOTE | 2019-06-21 06:30 | NUR ---
Problems reprioritized. Patient report given, questions answered & plan of care reviewed with Harjeet MACIAS. Addendum: 06/21/19 at 0631 by Cynthia Damon RN Amended: Links added.
[2019-06-21] MEDS: K and/or MAG REPLACEMENT MC SCH (07:49)
[2019-06-21] MEDS: enoxaparin 30mg/0.3ml syringe SQ SCH (07:51)
[2019-06-21] MEDS: levoTHYROXINE 112mcg tablet PO SCH (07:51)
[2019-06-21] MEDS: tamsulosin 0.4mg capsule PO SCH (07:51)
[2019-06-21] MEDS: lactobacillus rhamnosus 10,000 MMU CELLS/CAPSULE PO SCH ×2 (07:51→19:46)
[2019-06-21 08:00] VITALS: BP 151/86
[2019-06-21 08:21] LABS: BASOPHILS % (AUTO) 0.6 % (0-1); EOSINOPHILS # (AUTO) 0.6 X10'3 (0-0.9); EOSINOPHILS % (AUTO) 7.6 % (0-6); HEMATOCRIT 39.3 % (42.0-52.0); HEMOGLOBIN 13.2 g/dl (14.0-17.9); LYMPHOCYTES % (AUTO) 26.4 % (21-51); MEAN CORPUSCULAR HEMOGLOBIN 29.3 PG (27.0-31.0); MEAN CORPUSCULAR HGB CONC 33.6 g/dL (33.0-36.5); MEAN CORPUSCULAR VOLUME 87.3 FL (78-98); MEAN PLATELET VOLUME 7.8 FL (7.4-10.4); MONOCYTES # (AUTO) 0.9 X10'3 (0-0.9); MONOCYTES % (AUTO) 11.2 % (2-12); NEUTROPHILS # (AUTO) 4.1 X10'3 (1.8-7.7); NEUTROPHILS % (AUTO) 54.2 % (42-75); PLATELET COUNT 296 X10'3 (140-440); RED CELL DISTRIBUTION WIDTH 13.3 % (11.5-14.5); WHITE BLOOD COUNT 7.6 X10'3 (4.5-11.0)
[2019-06-21 08:49] LABS: ALANINE AMINOTRANSFERASE 14 U/L (12-78); ALBUMIN 2.7 G/DL (3.4-5.0); ALBUMIN/GLOBULIN RATIO 0.8 (1.1-1.5); ALKALINE PHOSPHATASE 64 IU/L (46-116); ANION GAP 10 (8-16); ASPARTATE AMINO TRANSFERASE 11 U/L (10-37); BILIRUBIN,TOTAL 0.3 MG/DL (0.1-1.0); BLOOD UREA NITROGEN 18 MG/DL (7-18); BUN/CREATININE RATIO 14.3 (5.4-32.0); CALCIUM 8.5 MG/DL (8.5-10.1); CHLORIDE 107 MMOL/L (99-107); CREATININE 1.26 MG/DL (0.60-1.10); GLUCOSE 85 MG/DL (70-104); MAGNESIUM 1.9 MG/DL (1.5-2.4); SODIUM 141 MMOL/L (135-145); TOTAL CARBON DIOXIDE 23.9 MMOL/L (24-32); TOTAL PROTEIN 6.3 G/DL (6.4-8.2); eGFR 54 ML/MIN
[2019-06-21 12:10] VITALS: BP 178/62
[2019-06-21 18:00] VITALS: BP 157/70
--- NOTE | 2019-06-21 18:35 | NUR ---
Patient in room [facility]. I have received report from COLLEEN Cosby and had the opportunity to ask questions and assume patient care.
--- NOTE | 2019-06-21 18:40 | NUR ---
Problems reprioritized. Patient report given, questions answered & plan of care reviewed with RENEE MACIAS.
[2019-06-22] VITALS: BP 139/73
[2019-06-22] MEDS: vancomycin 250MG/10ML UD oral solution 10ML BOTTLE PO SCH ×3 (01:36→14:13)
[2019-06-22 04:24] LABS: BASOPHILS % (AUTO) 0.6 % (0-1); EOSINOPHILS # (AUTO) 0.5 X10'3 (0-0.9); EOSINOPHILS % (AUTO) 6.9 % (0-6); HEMATOCRIT 37.9 % (42.0-52.0); LYMPHOCYTES % (AUTO) 27.2 % (21-51); MEAN CORPUSCULAR HEMOGLOBIN 29.7 PG (27.0-31.0); MEAN CORPUSCULAR HGB CONC 34.4 g/dL (33.0-36.5); MEAN CORPUSCULAR VOLUME 86.4 FL (78-98); MEAN PLATELET VOLUME 7.6 FL (7.4-10.4); MONOCYTES # (AUTO) 0.8 X10'3 (0-0.9); MONOCYTES % (AUTO) 11.7 % (2-12); NEUTROPHILS # (AUTO) 3.9 X10'3 (1.8-7.7); NEUTROPHILS % (AUTO) 53.6 % (42-75); PLATELET COUNT 300 X10'3 (140-440); RED BLOOD COUNT 4.39 X10'6 (4.70-6.10); RED CELL DISTRIBUTION WIDTH 13.3 % (11.5-14.5); WHITE BLOOD COUNT 7.2 X10'3 (4.5-11.0)
[2019-06-22 04:33] LABS: ALANINE AMINOTRANSFERASE 11 U/L (12-78); ALBUMIN 2.7 G/DL (3.4-5.0); ALBUMIN/GLOBULIN RATIO 0.8 (1.1-1.5); ALKALINE PHOSPHATASE 54 IU/L (46-116); ANION GAP 9 (8-16); ASPARTATE AMINO TRANSFERASE 16 U/L (10-37); BILIRUBIN,TOTAL 0.3 MG/DL (0.1-1.0); BLOOD UREA NITROGEN 18 MG/DL (7-18); BUN/CREATININE RATIO 13.8 (5.4-32.0); CALCIUM 8.4 MG/DL (8.5-10.1); CHLORIDE 107 MMOL/L (99-107); GLUCOSE 89 MG/DL (70-104); MAGNESIUM 1.9 MG/DL (1.5-2.4); POTASSIUM 3.7 MMOL/L (3.5-5.1); SODIUM 141 MMOL/L (135-145); TOTAL CARBON DIOXIDE 24.7 MMOL/L (24-32); TOTAL PROTEIN 6.2 G/DL (6.4-8.2); eGFR 52 ML/MIN
--- NOTE | 2019-06-22 06:43 | NUR ---
Patient in room [facility]. I have received report from Susan MACIAS and had the opportunity to ask questions and assume patient care.
--- NOTE | 2019-06-22 06:45 | NUR ---
Problems reprioritized. Patient report given, questions answered & plan of care reviewed with COLLEEN Cosby.
[2019-06-22 07:19] VITALS: BP 134/80
[2019-06-22] MEDS: K and/or MAG REPLACEMENT MC SCH (08:00)
[2019-06-22] MEDS: lactobacillus rhamnosus 10,000 MMU CELLS/CAPSULE PO SCH (08:03)
[2019-06-22] MEDS: tamsulosin 0.4mg capsule PO SCH (08:03)
[2019-06-22] MEDS: levoTHYROXINE 112mcg tablet PO SCH (08:03)
[2019-06-22] MEDS: enoxaparin 30mg/0.3ml syringe SQ SCH (08:04)
[2019-06-22] MEDS ORDERED: VANC250C12 PO (12:18)
[2019-06-22 12:21] VITALS: BP 134/77
--- NOTE | 2019-06-22 14:50 | NUR ---
Patient discharge done with spouse in room teaching was done at this time as well. patient new medications gone over at this time. Patient left with medication RX. patient took all belongings home at time of discharge. IV was taken out at time of discharge canula was whole and intact upon inspection. Patient was wheeled to front where they were transported home in private vehicle.
[2019-06-23] MEDS ORDERED: enoxaparin 40mg/0.4ml syringe SQ SCH (08:00)
== END 2019-06-22 14:50 | disposition home or self-care (01) | DRG 872 ==
LOC: ER 04:57 → ED HOLD 08:23 → SUR 3N 09:27
PROVIDERS: ADMIT Family Medicine; ATTEND Family Medicine
DX: A41.9 Sepsis, unspecified organism (principal); A04.71 Enterocolitis due to Clostridium difficile, recurrent; N18.3 Chronic kidney disease, stage 3 (moderate); E03.9 Hypothyroidism, unspecified; R21 Rash and other nonspecific skin eruption; N40.0 Benign prostatic hyperplasia without lower urinary tract symptoms; Z83.3 Family history of diabetes mellitus; Z88.5 Allergy status to narcotic agent; Z88.0 Allergy status to penicillin; Z88.8 Allergy status to other drugs, medicaments and biological substances; Z79.899 Other long term (current) drug therapy; Z98.49 Cataract extraction status, unspecified eye
CPT/HCPCS: 36415; 80053; 81003; 83605; 83735; 84145; 84443; 85025; 87040; 87081; 87324; 87449; 96360; 99285; G0378; J1650; J7030